=== PATIENT | male | born 1980 | race Caucasian/White ===

== ENCOUNTER 2017-04-28 17:36 | Emergency (ER) | payer MEDICARE ==
[~2017-04-28] VITALS: Wt 81.6 kg
[~2017-04-28 17:36] MED LIST: ACYCLOVIR800 MG PO; HYDROCODONE BIT1 T11 PO; NAPROSYN500 MG PO
== END 2017-04-28 19:10 | disposition home or self-care (01) ==
LOC: ED 17:36
DX: S61.211A Laceration without foreign body of left index finger without damage to nail, initial encounter (principal); Z23 Encounter for immunization; F17.200 Nicotine dependence, unspecified, uncomplicated; W26.0XXA Contact with knife, initial encounter; Y93.89 Activity, other specified; Y92.89 Other specified places as the place of occurrence of the external cause; Y99.8 Other external cause status

== ENCOUNTER 2017-05-07 23:13 | Emergency (ER) | payer MEDICARE ==
[~2017-05-07] VITALS: Ht 177.8 cm; Wt 86.2 kg
[2017-05-08] MEDS ORDERED: Fioricet 325 MG1 TAB PO (03:12)
== END 2017-05-08 03:20 | disposition home or self-care (01) ==
LOC: ED 23:13
DX: G43.909 Migraine, unspecified, not intractable, without status migrainosus (principal); F17.200 Nicotine dependence, unspecified, uncomplicated; R05 Cough; M54.2 Cervicalgia

== ENCOUNTER 2017-05-11 18:04 | Emergency (ER) | payer SELFPAY ==
[~2017-05-11] VITALS: Ht 182.8 cm; Wt 74.8 kg
[~2017-05-11 18:04] MED LIST changes: +Fioricet 325 MG1 TAB PO
[2017-05-11 18:40] LABS: BASO # 0.1 10*3/uL (0.0-0.1); BASO % 0.7 % (0.0-1.0); EOS # 0.2 10*3/uL (0.0-0.4); EOS % 2.2 % (1.0-4.0); HEMATOCRIT 47.3 % (42.0-52.0); HEMOGLOBIN 15.6 g/dl (14.0-18.0); LYMPH # 3.4 10*3/uL (1.3-4.4); LYMPH % 35.6 % (27.0-41.0); MEAN CELL VOLUME 92.4 fl (80.0-94.0); MEAN CORPUSCULAR HGB 30.5 pg (27.0-31.0); MONO # 0.8 10*3/uL (0.1-1.0); MONO % 8.1 % (3.0-9.0); NEUT # 5.1 10*3/uL (2.3-7.9); NEUT % 53.1 % (47.0-73.0); PLATELET COUNT AUTOMATED 202 10*3/uL (130-400); RED BLOOD COUNT 5.12 10*6/uL (4.50-5.90); WHITE BLOOD COUNT 9.5 10*3/uL (4.8-10.8)
[2017-05-11 18:56] LABS: ALBUMIN 4.2 gm/dl (3.1-4.5); ALKALINE PHOSPHATASE 113 U/L (45-117); BUN 13 mg/dl (7-24); CHLORIDE 105 mmol/L (98-107); CREATININE 1.11 mg/dL (0.70-1.30); POTASSIUM 5.3 mmol/L (3.5-5.1); SGOT/AST 20 IU/L (3-35); SGPT/ALT 25 U/L (12-78); SODIUM 141 mmol/L (136-145); TOTAL PROTEIN 7.3 gm/dL (6.4-8.2)
[2017-05-11 19:04] LABS: ACETAMINOPHEN (TYLENOL) < 2.0 ug/ml (10-30); ETHYL ALCOHOL < 3.0 mg/dl (<3)
[2017-05-11 20:22] LABS: BILIRUBIN NEGATIVE (NEGATIVE); BLOOD NEGATIVE (NEGATIVE); CLARITY CLEAR (CLEAR); COLOR YELLOW (YELLOW); GLUCOSE NEGATIVE (NEGATIVE); KETONE NEGATIVE (NEGATIVE); LEUKO ESTERASE NEGATIVE (NEGATIVE); NITRITE NEGATIVE (NEGATIVE); SPECIFIC GRAVITY 1.025 (1.005-1.030); UROBILINOGEN 0.2 E.U./dl (0.2-1.0)
[2017-05-11 20:31] LABS: BACTERIA 2+; RBC 0-2 rbc/hpf (0-2); WBC 0-2 wbc/hpf (0-5)
[2017-05-11 20:32] LABS: URINE AMPHETAMINES < 1000 (1000ng/ml); URINE BARBITURATES > 200 (200ng/ml); URINE BENZODIAZEPINES < 200 (200ng/ml); URINE CANNABINOIDS (THC) > 50 (50ng/ml); URINE COCAINE < 300 (300ng/ml); URINE METHADONE < 300 (300ng/ml); URINE OPIATES < 300 (300ng/ml); URINE PHENCYCLIDINE < 25 (25ng/ml)
== END 2017-05-12 08:08 | disposition home or self-care (01) ==
LOC: ED 18:04
PROVIDERS: Nurse Practitioner Family
DX: F32.9 Major depressive disorder, single episode, unspecified (principal); G43.909 Migraine, unspecified, not intractable, without status migrainosus; F17.200 Nicotine dependence, unspecified, uncomplicated

== ENCOUNTER 2017-07-08 10:37 | Emergency (ER) | payer SELFPAY ==
[~2017-07-08] VITALS: Ht 180.3 cm; Wt 94.3 kg
== END 2017-07-08 12:10 | disposition home or self-care (01) ==
LOC: ED 10:37
DX: S61.215A Laceration without foreign body of left ring finger without damage to nail, initial encounter (principal); F17.200 Nicotine dependence, unspecified, uncomplicated; G43.909 Migraine, unspecified, not intractable, without status migrainosus; Z79.899 Other long term (current) drug therapy; W26.0XXA Contact with knife, initial encounter; Y93.89 Activity, other specified; Y92.89 Other specified places as the place of occurrence of the external cause; Y99.9 Unspecified external cause status

== ENCOUNTER 2018-11-18 15:15 | Emergency (ER) | payer OTHER ==
[~2018-11-18] VITALS: Ht 180.3 cm; Wt 79.4 kg
[2018-11-18 15:53] LABS: BASO # 0.1 10*3/uL (0.0-0.1); BASO % 0.8 % (0.0-1.0); HEMATOCRIT 46.8 % (42.0-52.0); HEMOGLOBIN 15.7 g/dl (14.0-18.0); LYMPH # 0.6 10*3/uL (1.3-4.4); MEAN CELL VOLUME 93.4 fl (80.0-94.0); MEAN CORPUSCULAR HGB 31.3 pg (27.0-31.0); MEAN CORPUSCULAR HGB CONC 33.5 g/dl (33.0-37.0); MEAN PLATELET VOLUME 10.3 fl (9.6-12.3); MONO # 0.7 10*3/uL (0.1-1.0); MONO % 11.1 % (3.0-9.0); NEUT # 4.6 10*3/uL (2.3-7.9); NEUT % 77.8 % (47.0-73.0); PLATELET COUNT AUTOMATED 157 10*3/uL (130-400); RED BLOOD COUNT 5.01 10*6/uL (4.50-5.90); RED CELL DISTRI WIDTH 13.9 % (0-14.5); WHITE BLOOD COUNT 5.9 10*3/uL (4.8-10.8)
[2018-11-18 16:01] LABS: BILIRUBIN NEGATIVE (NEGATIVE); BLOOD NEGATIVE (NEGATIVE); CLARITY CLEAR (CLEAR); COLOR YELLOW (YELLOW); GLUCOSE NEGATIVE (NEGATIVE); KETONE TRACE (NEGATIVE); LEUKO ESTERASE NEGATIVE (NEGATIVE); NITRITE NEGATIVE (NEGATIVE)
[2018-11-18 16:13] LABS: BACTERIA TRACE; EPITHELIAL CELLS 0-2; MUCOUS 1+; WBC 0-2 wbc/hpf (0-5)
[2018-11-18 16:15] LABS: URINE AMPHETAMINES < 1000 (1000ng/ml); URINE BARBITURATES < 200 (200ng/ml); URINE BENZODIAZEPINES < 200 (200ng/ml); URINE CANNABINOIDS (THC) > 50 (50ng/ml); URINE COCAINE < 300 (300ng/ml); URINE METHADONE < 300 (300ng/ml); URINE OPIATES < 300 (300ng/ml); URINE PHENCYCLIDINE < 25 (25ng/ml)
[2018-11-18 16:19] LABS: ALBUMIN 3.6 gm/dl (3.1-4.5); ALKALINE PHOSPHATASE 110 U/L (45-117); BUN 8 mg/dl (7-24); CHLORIDE 104 mmol/L (98-107); CREATININE 1.16 mg/dL (0.70-1.30); POTASSIUM 3.9 mmol/L (3.5-5.1); SGOT/AST 26 IU/L (3-35); SGPT/ALT 32 U/L (12-78); SODIUM 135 mmol/L (136-145)
[2018-11-18] MEDS ORDERED: NAPROSYN500 MG PO (17:51)
[2018-11-18] MEDS ORDERED: MEDROL DOSEPAK4 MG PO (17:51)
[2018-11-18] MEDS ORDERED: ROBAXIN500 M1 PO (17:51)
== END 2018-11-18 20:23 | disposition home or self-care (01) ==
LOC: ED 15:15
PROVIDERS: Nurse Practitioner Family
DX: M54.42 Lumbago with sciatica, left side (principal); B34.9 Viral infection, unspecified; R35.0 Frequency of micturition; R30.9 Painful micturition, unspecified; X50.0XXA Overexertion from strenuous movement or load, initial encounter; Y93.89 Activity, other specified; Y92.89 Other specified places as the place of occurrence of the external cause; Y99.8 Other external cause status

== ENCOUNTER 2018-11-23 23:24 | Emergency (ER) | payer OTHER ==
[~2018-11-23] VITALS: Ht 177.8 cm; Wt 80.7 kg
[~2018-11-23 23:24] MED LIST changes: +MEDROL DOSEPAK4 MG PO; +ROBAXIN500 M1 PO
[2018-11-24 00:22] LABS: BASO # 0.1 10*3/uL (0.0-0.1); BASO % 0.6 % (0.0-1.0); EOS # 0.4 10*3/uL (0.0-0.4); EOS % 3.8 % (1.0-4.0); HEMATOCRIT 42.2 % (42.0-52.0); HEMOGLOBIN 13.9 g/dl (14.0-18.0); LYMPH # 1.9 10*3/uL (1.3-4.4); LYMPH % 18.6 % (27.0-41.0); MEAN CELL VOLUME 92.5 fl (80.0-94.0); MEAN CORPUSCULAR HGB 30.5 pg (27.0-31.0); MEAN CORPUSCULAR HGB CONC 32.9 g/dl (33.0-37.0); MONO # 0.8 10*3/uL (0.1-1.0); MONO % 7.6 % (3.0-9.0); NEUT # 6.9 10*3/uL (2.3-7.9); NEUT % 68.8 % (47.0-73.0); PLATELET COUNT AUTOMATED 190 10*3/uL (130-400); RED BLOOD COUNT 4.56 10*6/uL (4.50-5.90); RED CELL DISTRI WIDTH 14.1 % (0-14.5); WHITE BLOOD COUNT 10.1 10*3/uL (4.8-10.8)
[2018-11-24 00:35] LABS: ACT PARTIAL THROMBO TIME 30.5 SECONDS (20.0-32.1); INTERNATIONAL NORM RATIO 0.9 (2.0-3.5)
[2018-11-24 00:45] LABS: ALKALINE PHOSPHATASE 322 U/L (45-117); BUN 10 mg/dl (7-24); CHLORIDE 104 mmol/L (98-107); CREATININE 0.82 mg/dL (0.70-1.30); LIPASE 65 U/L (73-393); POTASSIUM 3.7 mmol/L (3.5-5.1); SGOT/AST 45 IU/L (3-35); SGPT/ALT 133 U/L (12-78); SODIUM 138 mmol/L (136-145); TOTAL PROTEIN 6.2 gm/dL (6.4-8.2)
[2018-11-24 00:47] LABS: TROPONIN I < 0.015 ng/ml (<0.045)
[2018-11-24 02:03] LABS: URINE AMPHETAMINES < 1000 (1000ng/ml); URINE BARBITURATES < 200 (200ng/ml); URINE BENZODIAZEPINES < 200 (200ng/ml); URINE CANNABINOIDS (THC) > 50 (50ng/ml); URINE COCAINE < 300 (300ng/ml); URINE METHADONE < 300 (300ng/ml); URINE OPIATES < 300 (300ng/ml)
[2018-11-24 02:05] LABS: BILIRUBIN NEGATIVE (NEGATIVE); BLOOD NEGATIVE (NEGATIVE); CLARITY CLEAR (CLEAR); COLOR YELLOW (YELLOW); GLUCOSE NEGATIVE (NEGATIVE); KETONE NEGATIVE (NEGATIVE); LEUKO ESTERASE NEGATIVE (NEGATIVE); NITRITE NEGATIVE (NEGATIVE)
[2018-11-24 02:22] LABS: URINE PHENCYCLIDINE < 25 (25ng/ml)
[2018-11-24] MEDS ORDERED: PREDNISONE20 M1 PO (02:23)
[2018-11-24] MEDS ORDERED: VALTREX500 MG PO (02:23)
[2018-11-24 02:43] LABS: WBC 0-2 wbc/hpf (0-5)
== END 2018-11-24 02:34 | disposition home or self-care (01) ==
LOC: ED 23:24
PROVIDERS: Internal Medicine
DX: R41.0 Disorientation, unspecified (principal); G51.0 Bell's palsy; R74.0 Nonspecific elevation of levels of transaminase and lactic acid dehydrogenase [LDH]; H57.89 Other specified disorders of eye and adnexa; H53.9 Unspecified visual disturbance; R10.9 Unspecified abdominal pain; H92.03 Otalgia, bilateral; M43.6 Torticollis; R53.83 Other fatigue; R53.1 Weakness; R68.84 Jaw pain; R20.0 Anesthesia of skin; G43.909 Migraine, unspecified, not intractable, without status migrainosus; F17.200 Nicotine dependence, unspecified, uncomplicated

== ENCOUNTER 2018-11-30 11:27 | Emergency (ER) | payer OTHER ==
[~2018-11-30] VITALS: Ht 180.3 cm; Wt 80.7 kg
[~2018-11-30 11:27] MED LIST changes: +PREDNISONE20 M1 PO; +VALTREX500 MG PO
[2018-11-30] MEDS ORDERED: LIDEX 0.05% CRE15 GM T (11:41)
== END 2018-11-30 11:45 | disposition home or self-care (01) ==
LOC: ED 11:27
DX: L30.9 Dermatitis, unspecified (principal); R68.84 Jaw pain; Z79.899 Other long term (current) drug therapy

== ENCOUNTER → 2018-12-12 | Outpatient (CLI) | payer OTHER ==
[~2018-12-12] MED LIST changes: +LIDEX 0.05% CRE15 GM T
== END | disposition home or self-care (01) ==
LOC: RESCLI 00:39
DX: G51.0 Bell's palsy (principal); H04.122 Dry eye syndrome of left lacrimal gland; Z88.8 Allergy status to other drugs, medicaments and biological substances; Z79.899 Other long term (current) drug therapy

== ENCOUNTER 2019-01-26 14:56 | Emergency (ER) | payer OTHER ==
[~2019-01-26] VITALS: Wt 76.2 kg
[2019-01-26] MEDS ORDERED: ZITHROMAX250 MG PO (17:49)
[2019-01-26] MEDS ORDERED: MEDROL DOSEPAK4 MG PO (17:49)
[2019-01-26] MEDS ORDERED: PROAIR HFA8.5 GM INH (17:49)
== END 2019-01-26 18:00 | disposition home or self-care (01) ==
LOC: ED 14:56
DX: J40 Bronchitis, not specified as acute or chronic (principal); G43.909 Migraine, unspecified, not intractable, without status migrainosus; Z87.891 Personal history of nicotine dependence

== ENCOUNTER 2020-05-16 18:11 | Emergency (ER) | payer OTHER ==
[~2020-05-16 18:11] MED LIST changes: +PROAIR HFA8.5 GM INH; +ZITHROMAX250 MG PO
[2020-05-16] MEDS ORDERED: IBUPROFEN600 MG PO (18:55)
[2020-05-16] MEDS ORDERED: AMOXICILLIN500 M2 PO (18:55)
== END 2020-05-16 19:08 | disposition home or self-care (01) ==
LOC: ED 18:11
DX: K08.89 Other specified disorders of teeth and supporting structures (principal); Z79.899 Other long term (current) drug therapy